=== PATIENT | male | born 1940 | race Caucasian/White ===

== ENCOUNTER 2017-03-06 11:01 | Outpatient (CLI) | payer MEDICARE, BC ==
[2016-02-04 09:58] VITALS: O2SAT 97
== END 2017-03-06 11:02 | disposition home or self-care (01) | DRG 561 ==
LOC: CONVCARE 11:01
PROVIDERS: ATTEND Orthopaedic Surgery
DX: Z47.1 Aftercare following joint replacement surgery (principal); Z96.652 Presence of left artificial knee joint
CPT/HCPCS: 73562

== ENCOUNTER 2017-09-11 06:00 | Day surgery (SDC) | payer MEDICARE, BC ==
[2017-09-11] MEDS ORDERED: ACETAZOLAMIDE 250 MG PO ONE (06:10)
[2017-09-11] MEDS: PROPARACAINE HCL 0.5% OPHTHALMIC SOL ONE ×3 (06:26→07:35)
[2017-09-11] MEDS: CYCLOPENTOLATE 1% SOL ONE ×2 (06:27→06:40)
[2017-09-11] MEDS: PHENYLEPHRINE HCL 10% OPHTHAL SOL ONE ×2 (06:27→06:40)
[2017-09-11] MEDS: KETOROLAC 0.5% OPTH 60 DROP SOL ONE ×2 (06:28→06:41)
[2017-09-11] MEDS ORDERED: BSS 500 ML 500 ML IR ONE (06:53)
[2017-09-11] MEDS ORDERED: POVIDONE IODINE 5% SOL ONE (06:53)
[2017-09-11] MEDS ORDERED: LIDOCAINE HCL 1% MPF SOL ONE (06:53)
[2017-09-11] MEDS ORDERED: MIDAZOLAM 2 MG/2 ML SOL ONE (07:16)
[2017-09-11] MEDS ORDERED: FENTANYL 100MCG/2ML SOL ONE (07:16)
[2017-09-11 08:12] VITALS: PULSE 64; RESP 20; TEMP 97.3
[2017-09-11 08:17] VITALS: BP 108/57; O2SAT 95
== END 2017-09-11 08:25 | disposition home or self-care (01) | DRG 125 ==
LOC: SURG 06:00
PROVIDERS: ATTEND Ophthalmology
DX: H25.9 Unspecified age-related cataract (principal); H21.81 Floppy iris syndrome; H57.03 Miosis
CPT/HCPCS: J2250; J3010; A9270-GY; J2001

== ENCOUNTER 2017-10-09 08:58 | Day surgery (SDC) | payer MEDICARE, BC ==
[~2017-10-09 08:58] MED LIST: ACETAZOLAMIDE 250 MG PO ONE; MIDAZOLAM 2 MG/2 ML SOL ONE
[2017-10-09 09:12] VITALS: O2SAT 94
[2017-10-09] MEDS: PROPARACAINE HCL 0.5% OPHTHALMIC SOL ONE ×3 (09:19→10:13)
[2017-10-09] MEDS: CYCLOPENTOLATE 1% SOL ONE ×2 (09:19→09:31)
[2017-10-09] MEDS: KETOROLAC 0.5% OPTH 60 DROP SOL ONE ×2 (09:19→09:32)
[2017-10-09] MEDS: PHENYLEPHRINE HCL 10% OPHTHAL SOL ONE ×2 (09:19→09:32)
[2017-10-09] MEDS ORDERED: LIDOCAINE HCL 1% MPF SOL ONE (09:55)
[2017-10-09] MEDS ORDERED: BSS 500 ML 500 ML IR ONE (09:55)
[2017-10-09] MEDS ORDERED: TRIAMCINOLONE ACETONIDE 10 MG/ML VIAL ONE (09:55)
[2017-10-09] MEDS ORDERED: POVIDONE IODINE 5% SOL ONE (09:55)
[2017-10-09 10:45] VITALS: BP 134/73; PULSE 64; RESP 20; TEMP 97.3
== END 2017-10-09 10:55 | disposition home or self-care (01) | DRG 125 ==
LOC: SURG 08:58
PROVIDERS: ATTEND Ophthalmology
DX: H25.9 Unspecified age-related cataract (principal); H57.03 Miosis
CPT/HCPCS: J2250; A9270-GY; J2001

== ENCOUNTER 2018-12-07 13:57 | Outpatient (CLI) | payer MEDICARE, BC | END 2018-12-07 13:58 | disposition home or self-care (01) | DRG 556 | LOC: CONVCARE 13:57 | PROVIDERS: ATTEND Orthopaedic Surgery | DX: M79.642 Pain in left hand (principal); M79.641 Pain in right hand | CPT/HCPCS: 73140 ==